=== PATIENT | female | born 1970 | race Caucasian/White ===

== ENCOUNTER 2023-01-22 06:39 | Day surgery (SDC) | payer SELFPAY ==
[2023-01-22] MEDS ORDERED: fentaNYL 50 MCG/ML SDV IVPUSH ONE ×2 (07:17→09:39)
[2023-01-22] MEDS ORDERED: diphenhydrAMINE 50 MG/ML SDV IVPUSH ONE (07:17)
[2023-01-22] MEDS ORDERED: Sodium Chloride 0.9% 1,000 ML IV ONE (07:17)
[2023-01-22] MEDS ORDERED: Ondansetron 4 MG/2 ML SDV IVPUSH ONE (07:17)
[2023-01-22] MEDS ORDERED: Sodium Chloride 0.9% 2.5 ML Syringe FLUSH PRN (07:17)
[2023-01-22] MEDS ORDERED: Sodium Chloride 0.9% 10 ML Syringe FLUSH PRN (07:17)
[2023-01-22 07:29] LABS: BASOPHILS PERCENT AUTO 0.3 % (0.0-1.5); EOSINOPHILS ABSOLUTE AUTO 0.4 K/uL (0.0-0.7); EOSINOPHILS PERCENT AUTO 3.3 % (0.0-7.0); HEMATOCRIT 42.3 % (36.0-46.0); HEMOGLOBIN 13.9 g/dL (12.0-16.0); LYMPHOCYTES ABSOLUTE AUTO 1.4 K/uL (0.6-2.4); LYMPHOCYTES PERCENT AUTO 12.6 % (16.0-40.0); MEAN CORPUSCULAR HEMOGLOBIN 30.9 pg (27.0-32.0); MEAN CORPUSCULAR HGB CONC 32.9 g/dL (31.0-37.0); MONOCYTES ABSOLUTE AUTO 0.7 K/uL (0.0-0.8); MONOCYTES PERCENT AUTO 6.5 % (0.0-15.0); NEUTROPHILS ABSOLUTE AUTO 8.5 K/uL (1.4-5.7); NEUTROPHILS PERCENT AUTO 77.3 % (48.0-80.0); NRBC ABSOLUTE 0 K/uL; PLATELET COUNT,PLT 248 K/uL (150-400)
[2023-01-22] MEDS ORDERED: Iopamidol 755 MG/ML 500 ML Multipack Bottle IVPUSH ONE ×2 (07:31→08:20)
[2023-01-22 07:43] LABS: A/G RATIO 0.8 (0.9-1.6); ALBUMIN 3.6 g/dL (3.4-5.0); BILIRUBIN TOTAL 0.5 mg/dL (0.2-1.0); CARBON DIOXIDE,CO2 26.6 mmol/L (21.0-32.0); CREATININE 0.8 mg/dL (0.6-1.0); EST CRCL DRUG DOSING (CG) 66.5 mL/min; POTASSIUM,K 3.9 mmol/L (3.5-5.1); PROTEIN TOTAL,TP 8.1 g/dL (6.4-8.2)
[2023-01-22 07:57] LABS: INR 0.95 (0.86-1.11)
[2023-01-22] MEDS ORDERED: Piperacillin/Tazobactam 4.5 GM in Sodium Chloride 0.9% 100 ML IV ONE (09:35)
[2023-01-22] MEDS ORDERED: Naloxone 0.4 MG/ML SDV IVPUSH PRN ×2 (09:39→13:29)
[2023-01-22] MEDS ORDERED: Ertapenem 1 GM in Sodium Chloride 0.9% 50 ML IV ONE (09:40)
[2023-01-22] MEDS ORDERED: Ketorolac 30 MG/ML SDV ONE (11:39)
[2023-01-22] MEDS ORDERED: Ondansetron 4 MG/2 ML SDV ONE ×2 (11:39→12:29)
[2023-01-22] MEDS ORDERED: Sugammadex Sodium 200 MG/2 ML VIAL ONE (11:39)
[2023-01-22] MEDS ORDERED: Lidocaine 2% 5 ML SDV ONE (11:39)
[2023-01-22] MEDS ORDERED: Propofol 200 MG/20 ML SDV ONE (11:39)
[2023-01-22] MEDS ORDERED: Rocuronium Bromide 50 MG/5 ML Syringe ONE ×2 (11:39→12:45)
[2023-01-22] MEDS ORDERED: Dexamethasone 4 MG/ML 5 ML MDV ONE (11:39)
[2023-01-22] MEDS ORDERED: fentaNYL 100 MCG/2 ML SDV ONE ×2 (11:40→12:37)
[2023-01-22] MEDS ORDERED: Bupivacaine 0.5% 30 ML SDV ONE ×2 (11:41→11:51)
[2023-01-22] MEDS ORDERED: Scopolamine 1.5 MG Transdermal Patch ONE (11:43)
[2023-01-22] MEDS ORDERED: Bupivacaine 0.25% 30 ML SDV ONE (11:51)
[2023-01-22] MEDS ORDERED: Ropivacaine 0.5% 5 MG/ML 30 ML SDV ONE (11:53)
[2023-01-22 12:08] LABS: APPEARANCE,URINE CLEAR; BILIRUBIN,URINE NEGATIVE (NEGATIVE); COLOR,URINE YELLOW; GLUCOSE,URINE NEGATIVE (NEGATIVE); KETONES,URINE 15 mg/dL (NEGATIVE); LEUKOCYTE ESTERASE,URINE NEGATIVE (NEGATIVE); NITRITE,URINE NEGATIVE (NEGATIVE); OCCULT BLOOD,URINE NEGATIVE (NEGATIVE); PROTEIN,URINE NEGATIVE (NEGATIVE); UROBILINOGEN,URINE 0.2 EU/dL (<2.0)
[2023-01-22] MEDS ORDERED: HYDROmorphone 2 MG/ML Syringe ONE (13:09)
[2023-01-22] MEDS ORDERED: Morphine 2 MG/ML SYRINGE IVPUSH PRN (13:29)
[2023-01-22] MEDS ORDERED: Albuterol 0.083% 2.5 MG/3 ML Neb Soln NEB PRN (13:29)
[2023-01-22] MEDS ORDERED: fentaNYL 50 MCG/ML SDV IVPUSH PRN (13:29)
[2023-01-22] MEDS ORDERED: Metoclopramide 10 MG/2 ML SDV IVPUSH PRN (13:29)
[2023-01-22] MEDS ORDERED: droPERidol 5 MG/2 ML SDV IVPUSH PRN (13:29)
[2023-01-22] MEDS ORDERED: Ondansetron 4 MG/2 ML SDV IVPUSH PRN ×2 (13:29→13:47)
[2023-01-22] MEDS ORDERED: HYDROmorphone 1 MG/ML Syringe IVPUSH PRN ×2 (13:29→13:47)
[2023-01-22] MEDS ORDERED: Acetaminophen/HYDROcodone 325-5 MG Tab PO PRN (13:47)
[2023-01-22] MEDS ORDERED: Piperacillin/Tazobactam 3.375 GM in Sodium Chloride 0.9% 100 ML IV SCH (14:00)
== END 2023-01-22 15:22 | disposition home or self-care (01) ==
LOC: MW.ED 06:39 → MW.SDS 12:03
PROVIDERS: ATTEND Surgery
DX: K35.30 Acute appendicitis with localized peritonitis, without perforation or gangrene (principal)
CPT/HCPCS: 36415; 44970; 64488; 74177; 80053; 81003; 81025; 85025; 85610; 96361; 96365; 96375; 96376; 99285; J0131; J1100; J1200; J1335; J1885; J2405; J2704; J2795; J3010; J3490; J7030; Q9967; 00840; J1170